=== PATIENT | female | born 1935 | race Caucasian/White ===

== ENCOUNTER 2016-05-22 08:12 | Emergency (ER) | payer OTHER, BC ==
[~2016-05-22] VITALS: Ht 149.9 cm; Wt 47.8 kg
[~2016-05-22 08:12] MED LIST: AMANTADINE100 MG PO; ASPIR 8181 M1 PO; BAYER ASPIRIN1 EACH; CALCITRATE + D1 EACH PO; CALCIUM 600 +1 EACH; CARBIDOPA-LEVO1 EA11 PO; CELEBREX200 MG; CELEBREX200 MG PO; CENTRUM SILVER1 EAC3 PO; CLOTRIMAZOLE10 MG PO; COMPLETE MULTI1 EAC3; Claritin,Alavart PO; Colace PO; ELAVIL10 MG PO; Ecotrin PO; FUROSEMIDE20 MG PO; GLUCOPHAGE500 MG; Glucophage PO; Imodium PO; LASIX20 MG PO; LASIX40 MG; LEVAQUIN250 MG PO; LEVAQUIN500 MG PO; LYRICA75 MG PO; METFORMIN HCL1000 MG; METFORMIN HCL1000 MG PO; METHOCARBAMOL500 MG PO; MIRAPEX1 MG; MORPHINE SULFAT15 M1 PO; MYRBETRIQ50 MG PO; Mirapex PO; OXYCODONE HCL5 MG PO; OXYCODONE HCL80 MG; OXYCODONE-APAP1 EAC5 PO; Oscal 500 w/Vitamin PO; PRAMIPEXOLE DI0.5 MG PO; PRAMIPEXOLE DI1.5 MG PO; Pepcid PO; Percocet 5/325,Endoc PO; ROXICODONE5 MG PO; SINEMET CR 25-1 EACH PO; SKELAXIN400 M1 PO; SYMMETREL100 M1 PO; SYMMETREL100 MG PO; Sinemet 25-100 PO; Symmetrel PO; TOPAMAX25 MG; TYLENOL REGULA325 MG PO; Theragran PO; VESICARE5 MG; [UNRECOGNIZED DRUG - OTHER]; celeBREX PO
[2016-05-22 08:23] VITALS: BP 92/40
[2016-05-22] MEDS ORDERED: MORPHINE SULFAT10 M3 PO (08:25)
[2016-05-22] MEDS ORDERED: CARBIDOPA-LEVO1 EAC7 PO (08:27)
[2016-05-22 08:31] LABS: POINT-OF-CARE METER ID UU14100415
[2016-05-22 08:52] LABS: EOSINOPHIL COUNT 0.2 K/uL (0-0.3); HEMATOCRIT 35.8 % (36.0-46.0); IMMATURE GRANULOCYTE (%) 0.1 % (0.0-0.7); IMMATURE GRANULOCYTE COUNT 0.1 K/uL; LYMPHOCYTE COUNT 2.3 K/uL (1.0-2.8); MCH 28.8 PG (29.0-34.0); MCHC 32.7 G/DL (30.0-36.0); MCV 88.2 FL (83-99); MEAN PLAT.VOLUME 11.4 uM^3 (9.5-12.4); MONOCYTE (%) 7.3 % (3-12); MONOCYTE COUNT 0.7 K/uL (0-0.8); NEUTROPHIL (%) 65.1 % (45-76); NEUTROPHIL COUNT 5.9 K/uL (1.8-6.4); PLATELET COUNT 226 K/uL (156-360); RBC DIS.WIDTH-CV 14.3 % (11.8-14.6); RBC DIS.WIDTH-SD 45.4 % (39-53); RED BLOOD COUNT 4.06 M/uL (3.80-5.20)
[2016-05-22 09:00] VITALS: BP 112/57
[2016-05-22 09:01] LABS: CHLORIDE 106 mEq/L (99-109); POTASSIUM 4.1 mEq/L (3.7-5.4); SODIUM 140 mEq/L (136-147)
[2016-05-22 09:03] LABS: GLUCOSE 108 mg/dL (70-99)
[2016-05-22 09:04] LABS: ANION GAP 9 MEQ/L (2-14)
[2016-05-22 09:06] LABS: GFR ESTIMATE (CALCULATED) 57 mL/min/
[2016-05-22 09:07] LABS: UREA NITROGEN (BUN) 25 mg/dL (9-23)
[2016-05-22 09:31] VITALS: BP 109/59
[2016-05-22 09:54] VITALS: BP 129/59
[2016-05-22] MEDS ORDERED: MIRAPEX ER1.5 MG PO (11:41)
[2016-05-22] MEDS ORDERED: SINEMET 25-1001 EACH PO ×3 (11:48→12:08)
[2016-05-22] MEDS ORDERED: METFORMIN HCL500 MG PO (12:10)
[2016-05-22 13:29] LABS: ADD MIUA? YES; BILIRUBIN NEGATIVE; BLOOD NEGATIVE; COLOR YELLOW ((YELLOW)); GLUCOSE (STRIP) NEGATIVE; KETONES TRACE; LEUKOCYTES SMALL; NITRITE NEGATIVE; PROTEIN (STRIP) NEGATIVE; SPECIFIC GRAVITY 1.026 (1.000-1.030); UROBILINOGEN 0.2 MG/DL (0.2-1.0)
[2016-05-22] MEDS ORDERED: TYLENOL WITH C1 EACH PO (13:37)
[2016-05-22 13:49] LABS: BACTERIA NONE SEEN /HPF; CASTS NONE SEEN /LPF; CRYSTALS NONE SEEN; EPITHELIAL CELLS 1+ /HPF; MUCUS NONE SEEN /LPF; PATHOLOGICAL CAST NONE SEEN; RED BLOOD CELLS 0-5 /HPF (0-5); SMALL ROUND CELL NONE SEEN; UCUL ADDED? NO; YEAST-LIKE CELL NONE SEEN
[2016-05-22] MEDS ORDERED: CIPRO500 MG PO (13:54)
[2016-05-22 15:24] VITALS: BP 101/47
== END 2016-05-22 15:25 ==
LOC: EME → EDBD 08:12 → EDSEX 08:12 → EME 08:12
PROVIDERS: Emergency Medicine
DX: R26.2 Difficulty in walking, not elsewhere classified (principal); G20 Parkinson's disease; N39.0 Urinary tract infection, site not specified; E11.9 Type 2 diabetes mellitus without complications; Z88.0 Allergy status to penicillin
CPT/HCPCS: 71010; 80048; 81003; 82948; 85025; 99281; 99285; G8978 GP CM; G8979 CJ; G8987 GO CM; G8988 GO CK

== ENCOUNTER → 2016-10-12 | Outpatient (CLI) | payer MEDICARE, BC ==
[~2016-10-12] MED LIST changes: +CARBIDOPA-LEVO1 EAC7 PO; +CIPRO500 MG PO; +METFORMIN HCL500 MG PO; +MIRAPEX ER1.5 MG PO; +MORPHINE SULFAT10 M3 PO; +SINEMET 25-1001 EACH PO; +TYLENOL WITH C1 EACH PO
== END | disposition home or self-care (01) ==
LOC: CDC 09:26
DX: N32.81 Overactive bladder (principal); R94.31 Abnormal electrocardiogram [ECG] [EKG]
CPT/HCPCS: 93000

== ENCOUNTER → 2017-11-16 | Outpatient (CLI) | payer MEDICARE, BC | END | disposition home or self-care (01) | LOC: CDC 10:12 | DX: Z01.810 Encounter for preprocedural cardiovascular examination (principal); N32.81 Overactive bladder | CPT/HCPCS: 93000 ==